=== PATIENT | female | born 1970 | race Caucasian/White ===

== ENCOUNTER → 2016-12-19 | Outpatient (CLI) | payer OTHER ==
--- NOTE | 2016-12-19 16:54 | MA ---
Screening Digital Mammogram With iCAD Analysis Reason for Examination: Routine screening. Breast parenchymal density: Type B; Scattered fibroglandular densities. Technique: Four views of each breast were obtained including CC and oblique lateral Teto (implant d isplaced) and non-Teto (implant not displaced) views. Images were reviewed using the iCAD computer- aided detection system. Comparison: October 2015, June 2014, July 2013, March 2012, May 2011. Findings: Breast implants are in place bilaterally. ICAD is reviewed. No suspicious areas are identif ied. There has been no significant change in the appearance of either breast. Breast implants diminis h the sensitivity of mammography. Impression: Negative mammogram. BI-RADS 1. Recommendation: Routine screening is recommended in one year as long as physical examination is negat [place]. [facility] will send a result letter to the patient. Negative mammography should not preclude additional workup of a clinically suspicious finding. The patient's information is entered into a reminder system with a target due date for her next mammo gram.
== END ==
LOC: BRMIMAGING 13:31
DX: Z12.31 Encounter for screening mammogram for malignant neoplasm of breast (principal)
CPT/HCPCS: G0202

== ENCOUNTER → 2017-12-19 | Outpatient (CLI) | payer OTHER | LOC: BRMIMAGING 11:18 | PROVIDERS: ATTEND Family Medicine | DX: Z12.31 Encounter for screening mammogram for malignant neoplasm of breast (principal) ==

== ENCOUNTER → 2017-12-24 | Outpatient (CLI) | payer OTHER | LOC: BRMIMAGING 09:24 | PROVIDERS: ATTEND Family Medicine | DX: N60.02 Solitary cyst of left breast (principal) | CPT/HCPCS: 76641-PO ==

== ENCOUNTER → 2018-12-24 | Outpatient (CLI) | payer OTHER | LOC: BRMIMAGING 13:32 | PROVIDERS: ATTEND Family Medicine | DX: Z12.31 Encounter for screening mammogram for malignant neoplasm of breast (principal) ==